=== PATIENT | male | born 1985 | race African-American/Black ===

== ENCOUNTER 2017-01-07 08:37 | Emergency (ER) | payer SELFPAY ==
[2017-01-07] MEDS ORDERED: Ibuprofen 800 MG TAB ONE (08:42)
[2017-01-07] MEDS ORDERED: Oseltamivir 75 MG CAP ONE (09:17)
== END 2017-01-07 09:25 | disposition home or self-care (01) ==
LOC: BURERS 08:37
DX: J11.1 Influenza due to unidentified influenza virus with other respiratory manifestations (principal); K21.9 Gastro-esophageal reflux disease without esophagitis; F17.210 Nicotine dependence, cigarettes, uncomplicated
CPT/HCPCS: 99283

== ENCOUNTER 2017-12-05 09:20 | Emergency (ER) | payer SELFPAY ==
[2017-12-05] MEDS ORDERED: Ketorolac Tromethamine 60 MG/2 ML VIAL ONE (09:57)
--- NOTE | 2017-12-05 10:17 | RAD ---
RIGHT HAND 3 VIEWS: Date: 12/05/17 FINDINGS: The fracture through the distal fifth metacarpal was present at the junction of the neck and head. Th ere is volar angulation of the metacarpal head. The digits and carpal bones appear intact. IMPRESSION: Acute, angulated fracture of the distal fifth metacarpal. POS: HOME
== END 2017-12-05 10:13 | disposition home or self-care (01) ==
LOC: BURERS 09:20
DX: S62.316A Displaced fracture of base of fifth metacarpal bone, right hand, initial encounter for closed fracture (principal); F17.210 Nicotine dependence, cigarettes, uncomplicated; V80.010A Animal-rider injured by fall from or being thrown from horse in noncollision accident, initial encounter
CPT/HCPCS: 29125; J1885

== ENCOUNTER 2019-01-24 19:30 | Emergency (ER) | payer SELFPAY ==
[2019-01-24] MEDS ORDERED: Sulfameth/Trimethoprim DS 800-160mg TAB ONE (19:55)
[2019-01-24] MEDS ORDERED: Dexamethasone 4 MG TAB ONE (19:55)
== END 2019-01-24 20:00 | disposition home or self-care (01) ==
LOC: BURERS 19:30
DX: J01.90 Acute sinusitis, unspecified (principal); F17.210 Nicotine dependence, cigarettes, uncomplicated; Z79.899 Other long term (current) drug therapy
CPT/HCPCS: 99283; J8540

== ENCOUNTER 2022-04-16 10:42 | Emergency (ER) | payer SELFPAY ==
[2022-04-16] MEDS ORDERED: Ketorolac Tromethamine 30 MG/ML VIAL ONE (11:23)
[2022-04-16] MEDS ORDERED: Acetaminophen 500 MG TAB ONE (11:23)
[2022-04-16] MEDS ORDERED: Sodium Chloride 0.9% 0 ML ONE (11:24)
[2022-04-16 11:30] LABS: #Basophils 0.1 thou/uL (0.0-0.2); #Eosinphils 0.1 thou/uL (0.0-0.7); #Lymphocytes 2.2 thou/uL (1.20-3.40); #Monocytes 0.6 thou/uL (0.11-0.59); #Neutrophils 10.9 thou/uL (1.40-6.50); %Basophils 0.8 % (0.0-1.0); %Eosinophils 0.5 % (0.0-10.0); %Lymphocytes 15.7 % (21.0-51.0); %Monocytes 4.1 % (0.0-10.0); %Neutrophils 78.9 % (42.0-75.0); Hemoglobin 14.7 g/dL (14.0-18.0); Mean Corpuscular HGB CONC 31.9 g/dL (32.0-36.0); Mean Corpuscular Volume 90.9 fL (78.0-98.0); Mean Platelet Volume 9.1 fL (7.4-10.4); Platelet Count 292 thou/uL (130-400); RBC Distribution Width 13.5 % (11.5-14.5); Red Blood Cell (RBC) Count 5.07 mill/uL (4.70-6.10); White Blood Cell (WBC) Count 13.8 thou/uL (4.8-10.8)
[2022-04-16 11:45] LABS: ALT (SGPT) 17 U/L (8-55); AST (SGOT) 20 U/L (5-34); Albumin 4.7 g/dL (3.5-5.0); Alkaline Phosphatase 87 U/L (40-110); Anion Gap 17 mmol/L (10-20); BUN (Urea Nitrogen) 11 mg/dL (8.9-20.6); Bilirubin, Total 0.4 mg/dL (0.2-1.2); Calc. Creatinine Clearance 0 mL/min (70-130); Calcium 9.8 mg/dL (7.8-10.44); Carbon Dioxide 24 mmol/L (22-29); Chloride 105 mmol/L (98-107); Globulin 3.8 g/dL (2.4-3.5); Glucose 88 mg/dL (70-105); Potassium 3.8 mmol/L (3.5-5.1); Protein, Total 8.5 g/dL (6.0-8.3); Sodium 142 mmol/L (136-145)
== END 2022-04-16 12:52 | disposition home or self-care (01) ==
LOC: BURERS 10:42
DX: K61.0 Anal abscess (principal); F17.210 Nicotine dependence, cigarettes, uncomplicated
CPT/HCPCS: 36415; 72193; 80053; 83605; 85025; 87040; 96365; 96375; J1885; J3370; J3490

== ENCOUNTER 2025-08-14 16:41 | Emergency (ER) | payer OTHER, SELFPAY | END 2025-08-14 17:41 | disposition home or self-care (01) | LOC: BURERS 16:41 | DX: H61.21 Impacted cerumen, right ear (principal); I10 Essential (primary) hypertension; F17.210 Nicotine dependence, cigarettes, uncomplicated; Z79.899 Other long term (current) drug therapy | CPT/HCPCS: 69210; 99282 ==